=== PATIENT | female | born 1970 | race Caucasian/White ===

== ENCOUNTER 2018-05-05 14:06 | Day surgery (SDC) | payer OTHER ==
[~2018-05-05] VITALS: Ht 157.5 cm; Wt 60.8 kg
[~2018-05-05 14:06] MED LIST: ALLERGY EYE DRO15 ML OP; GARAMYCIN OPHT3.5 GM OP
[2018-05-06] MEDS ORDERED: COLACE100 MG PO (15:25)
[2018-05-06] MEDS ORDERED: PERCOCET 5-3251 EACH PO (15:25)
== END 2018-05-06 13:00 | disposition home or self-care (01) ==
LOC: ER 14:06 → CIR.AMB 05-06 07:00 → O/R 05-06 12:41 → ER 05-06 12:41 → SEC-K 05-06 12:41 → CIR.AMB 05-06 13:00 → SEC-K 05-06 13:17 → O/R 05-06 13:17 → EDSTATUS 05-06 14:00 → O/R 05-06 20:30
DX: K64.5 Perianal venous thrombosis (principal); K64.8 Other hemorrhoids; K62.5 Hemorrhage of anus and rectum

== ENCOUNTER 2019-03-13 07:15 | Day surgery (SDC) | payer OTHER ==
[~2019-03-13 07:15] MED LIST changes: +COLACE100 MG PO; +PERCOCET 5-3251 EACH PO
== END 2019-03-13 12:05 | disposition home or self-care (01) ==
LOC: AMB-ENDOS 07:15
DX: K62.1 Rectal polyp (principal); Z12.11 Encounter for screening for malignant neoplasm of colon

== ENCOUNTER 2023-01-22 19:12 | Emergency (ER) | payer OTHER ==
[~2023-01-22] VITALS: Ht 160 cm; Wt 70.3 kg
== END 2023-01-23 00:46 | disposition home or self-care (01) ==
LOC: ER 19:12
DX: N93.8 Other specified abnormal uterine and vaginal bleeding (principal); Z91.040 Latex allergy status; Z88.0 Allergy status to penicillin